=== PATIENT | female | born 1985 | race Caucasian/White ===

== ENCOUNTER 2022-02-13 23:53 | Inpatient (IN) | payer BC ==
[2022-02-14 03:32] VITALS: BMI 36.3
[2022-02-14] MEDS ORDERED: Dextrose 5 % And 0.9 % NaCl 1,000 ML IV SCH ×2 (04:00→05:00)
[2022-02-14] MEDS ORDERED: Ondansetron PF 4 MG/2 ML Vial IVP PRN (04:00)
[2022-02-14] MEDS ORDERED: Ondansetron ODT 4 MG TAB SL PRN (04:00)
[2022-02-14] MEDS ORDERED: diphenhydrAMINE 50 MG/ML VIAL IVP SCH (04:30)
[2022-02-14] MEDS ORDERED: Acetaminophen 650 MG Suppository PR PRN (05:08)
[2022-02-14] MEDS: Clindamycin/D5W 600 MG in Premix Bag 1 BAG IVPB SCH ×4 (05:12→22:57)
[2022-02-14 05:57] LABS: Hemoglobin 14.5 g/dL (12.0-16.0); Mean Corpuscular Hemoglobin 32.3 pg (27.0-31.0); Mean Platelet Volume 11.2 fL (7.4-10.4); Platelet Count 203 10x3/uL (130-400); RBC Distribution Width 12.3 % (11.5-14.5); White Blood Cell (WBC) Count 25.3 10x3/uL (4.8-10.8)
[2022-02-14 06:21] LABS: Anion Gap 11 mmol/L (10-20); BUN (Urea Nitrogen) 6 mg/dL (7.0-18.7); Calc. Creatinine Clearance 173 mL/min (70-130); Calcium 8.8 mg/dL (7.8-10.44); Carbon Dioxide 18 mmol/L (22-29); Chloride 108 mmol/L (98-107); Estimated GFR 116; Glucose 155 mg/dL (70-105); Potassium 3.4 mmol/L (3.5-5.1); Sodium 134 mmol/L (136-145)
[2022-02-14 06:43] LABS: Band 16 % (5-11); Dohle Bodies SLIGHT; Lymphocytes 1 % (21-51); MDiff Complete? YES; Monocytes 1 % (0-10); Neutrophil 82 % (42-75); Platelet Morphology Comment Appears Adequate; RBC Morphology Normal; Vacuoles SLIGHT
[2022-02-14] MEDS ORDERED: metroNIDAZOLE 500 MG in Premix Bag 1 BAG IVPB SCH (08:00)
[2022-02-14] MEDS: Pantoprazole 40 MG VIAL IVP SCH (09:01)
[2022-02-14] MEDS ORDERED: Fentanyl 250 MCG/5 ML VIAL ONE (15:02)
[2022-02-14] MEDS ORDERED: Dexmedetomidine 200 MCG/2 ML VIAL ONE (15:03)
[2022-02-14] MEDS ORDERED: EPINEPHrine 1 MG/ML AMP ONE (16:04)
[2022-02-14] MEDS ORDERED: Lidocaine 1% (PF) 30 ML VIAL ONE (16:04)
[2022-02-14] MEDS ORDERED: Midazolam HCl 2 mg/2 ml Vial ONE (16:16)
[2022-02-14] MEDS ORDERED: PROPOFOL 200 MG/20 ML VIAL ONE (16:23)
[2022-02-14] MEDS ORDERED: Dexamethasone 20 MG/5 ML VIAL ONE (16:23)
[2022-02-14] MEDS ORDERED: Ondansetron PF 4 MG/2 ML Vial ONE (16:23)
[2022-02-14] MEDS: traMADol HCl 50 MG TAB PO PRN ×2 (18:23→22:54)
[2022-02-14] MEDS ORDERED: Morphine 4 MG/ML VIAL SLOW IVP SCH (21:00)
[2022-02-15] MEDS: traMADol HCl 50 MG TAB PO PRN ×4 (03:07→20:41)
[2022-02-15] MEDS ORDERED: diphenhydrAMINE 25 MG CAP PO SCH (03:15)
[2022-02-15] MEDS: Clindamycin/D5W 600 MG in Premix Bag 1 BAG IVPB SCH ×3 (05:20→17:10)
[2022-02-15 06:43] LABS: Hemoglobin 13.7 g/dL (12.0-16.0); Mean Corpuscular HGB CONC 33.4 g/dL (32.0-36.0); Mean Corpuscular Volume 95.7 fl (78.0-98.0); Mean Platelet Volume 11.7 fL (7.4-10.4); Platelet Count 225 10x3/uL (130-400); RBC Distribution Width 12.3 % (11.5-14.5); Red Blood Cell (RBC) Count 4.28 mill/uL (4.20-5.40); White Blood Cell (WBC) Count 29.9 10x3/uL (4.8-10.8)
[2022-02-15 07:05] LABS: Anion Gap 14 mmol/L (10-20); BUN (Urea Nitrogen) 11 mg/dL (7.0-18.7); Calc. Creatinine Clearance 210 mL/min (70-130); Carbon Dioxide 19 mmol/L (22-29); Chloride 103 mmol/L (98-107); Estimated GFR 121; Glucose 109 mg/dL (70-105); Potassium 3.1 mmol/L (3.5-5.1); Sodium 133 mmol/L (136-145)
[2022-02-15 08:47] LABS: Band 13 % (5-11); Lymphocytes 9 % (21-51); MDiff Complete? YES; Monocytes 9 % (0-10); Neutrophil 69 % (42-75); Platelet Morphology Comment Appears Adequate; RBC Morphology Normal
[2022-02-15] MEDS: Pantoprazole 40 MG VIAL IVP SCH (09:08)
[2022-02-15] MEDS: Potassium Chloride 20 MEQ TAB PO SCH ×2 (14:15→20:42)
[2022-02-15] MEDS: Morphine 4 MG/ML VIAL SLOW IVP PRN (17:11)
[2022-02-15] MEDS ORDERED: Amlodipine 5 MG TAB PO SCH (17:15)
[2022-02-15] MEDS: Acetaminophen 325 MG TAB PO PRN (20:42)
[2022-02-16] MEDS: Clindamycin/D5W 600 MG in Premix Bag 1 BAG IVPB SCH ×5 (00:41→23:02)
[2022-02-16] MEDS: traMADol HCl 50 MG TAB PO PRN ×2 (02:15→06:17)
[2022-02-16] MEDS: Acetaminophen 325 MG TAB PO PRN (05:36)
[2022-02-16 06:03] LABS: Anion Gap 16 mmol/L (10-20); BUN (Urea Nitrogen) 9 mg/dL (7.0-18.7); Calc. Creatinine Clearance 184 mL/min (70-130); Calcium 8.7 mg/dL (7.8-10.44); Carbon Dioxide 16 mmol/L (22-29); Chloride 102 mmol/L (98-107); Estimated GFR 117; Glucose 72 mg/dL (70-105); Potassium 3.7 mmol/L (3.5-5.1); Sodium 130 mmol/L (136-145)
[2022-02-16 06:16] LABS: #Eosinphils 0.2 thou/uL (0.0-0.7); #Lymphocytes 1.4 thou/uL (1.20-3.40); #Monocytes 1.4 thou/uL (0.11-0.59); #Neutrophils 17.7 thou/uL (1.40-6.50); %Eosinophils 1.2 % (0.0-10.0); %Lymphocytes 6.9 % (21.0-51.0); %Monocytes 6.6 % (0.0-10.0); %Neutrophils 85.3 % (42.0-75.0); Hemoglobin 14.6 g/dL (12.0-16.0); Mean Corpuscular HGB CONC 32.7 g/dL (32.0-36.0); Mean Corpuscular Hemoglobin 32.2 pg (27.0-31.0); Mean Corpuscular Volume 98.6 fl (78.0-98.0); Mean Platelet Volume 10.7 fL (7.4-10.4); Platelet Count 185 10x3/uL (130-400); RBC Distribution Width 12.7 % (11.5-14.5); Red Blood Cell (RBC) Count 4.51 mill/uL (4.20-5.40); White Blood Cell (WBC) Count 20.8 10x3/uL (4.8-10.8)
[2022-02-16] MEDS: Gabapentin 300 MG CAP PO SCH ×3 (08:53→19:49)
[2022-02-16] MEDS: Loratadine 10 MG TAB PO SCH (08:53)
[2022-02-16] MEDS: Pantoprazole 40 MG VIAL IVP SCH (08:53)
[2022-02-16] MEDS: Famotidine 20 MG TAB PO SCH ×2 (08:53→19:50)
[2022-02-16] MEDS: Amlodipine 10 MG TAB PO SCH (08:53)
[2022-02-16] MEDS ORDERED: Cetirizine HCl 10 MG TAB PO SCH (09:00)
[2022-02-16] MEDS ORDERED: Topiramate 25 MG TAB PO SCH (09:00)
[2022-02-16] MEDS: Ketorolac Tromethamine 30 MG/ML VIAL IVP PRN ×2 (10:52→18:32)
[2022-02-16] MEDS: Topiramate 25 MG TAB PO SCH (19:50)
[2022-02-17] MEDS: Ketorolac Tromethamine 30 MG/ML VIAL IVP PRN ×4 (00:28→20:14)
[2022-02-17] MEDS: Acetaminophen 325 MG TAB PO PRN ×4 (02:46→22:58)
[2022-02-17] MEDS: Morphine 4 MG/ML VIAL SLOW IVP PRN (02:46)
[2022-02-17] MEDS: Clindamycin/D5W 600 MG in Premix Bag 1 BAG IVPB SCH ×4 (06:08→22:59)
[2022-02-17 06:32] LABS: Anion Gap 14 mmol/L (10-20); BUN (Urea Nitrogen) 8 mg/dL (7.0-18.7); Calc. Creatinine Clearance 149 mL/min (70-130); Calcium 8.1 mg/dL (7.8-10.44); Carbon Dioxide 23 mmol/L (22-29); Chloride 97 mmol/L (98-107); Estimated GFR 99; Glucose 87 mg/dL (70-105); Hemoglobin 13.9 g/dL (12.0-16.0); Mean Corpuscular HGB CONC 33.9 g/dL (32.0-36.0); Mean Corpuscular Volume 94.6 fl (78.0-98.0); Mean Platelet Volume 11.2 fL (7.4-10.4); Platelet Count 251 10x3/uL (130-400); Potassium 2.7 mmol/L (3.5-5.1); RBC Distribution Width 12.5 % (11.5-14.5); Red Blood Cell (RBC) Count 4.34 mill/uL (4.20-5.40); Sodium 131 mmol/L (136-145); White Blood Cell (WBC) Count 29.9 10x3/uL (4.8-10.8)
[2022-02-17 07:34] LABS: Band 31 % (5-11); Large Platelets SLIGHT; Lymphocytes 6 % (21-51); MDiff Complete? YES; Monocytes 1 % (0-10); Neutrophil 61 % (42-75); Platelet Morphology Comment Appears Adequate; RBC Morphology Normal; Reactive Lymphocytes 1 % (0-10)
[2022-02-17] MEDS ORDERED: Potassium Chloride 40 MEQ in Premix Bag 1 BAG IVPB SCH (08:00)
[2022-02-17] MEDS: Pantoprazole 40 MG VIAL IVP SCH (09:24)
[2022-02-17] MEDS: Loratadine 10 MG TAB PO SCH ×2 (09:24→20:14)
[2022-02-17] MEDS: Potassium Chloride 20 MEQ TAB PO SCH ×2 (09:24→13:05)
[2022-02-17] MEDS: Famotidine 20 MG TAB PO SCH ×2 (09:24→20:14)
[2022-02-17] MEDS: Gabapentin 300 MG CAP PO SCH ×3 (09:25→20:14)
[2022-02-17] MEDS: Amlodipine 10 MG TAB PO SCH (09:26)
[2022-02-17] MEDS ORDERED: diphenhydrAMINE 25 MG CAP PO PRN (09:48)
[2022-02-17] MEDS ORDERED: Hydrocortisone 1% Cream 30 GM TUBE TOP SCH (13:15)
[2022-02-17] MEDS: Topiramate 25 MG TAB PO SCH (20:14)
[2022-02-18] MEDS: Ketorolac Tromethamine 30 MG/ML VIAL IVP PRN ×2 (02:58→08:31)
[2022-02-18] MEDS: Clindamycin/D5W 600 MG in Premix Bag 1 BAG IVPB SCH ×2 (05:09→11:20)
[2022-02-18] MEDS: Morphine 4 MG/ML VIAL SLOW IVP PRN ×2 (05:12→13:33)
[2022-02-18] MEDS: Acetaminophen 325 MG TAB PO PRN ×2 (05:12→13:33)
[2022-02-18] MEDS: Gabapentin 300 MG CAP PO SCH ×2 (08:30→14:46)
[2022-02-18] MEDS: Pantoprazole 40 MG VIAL IVP SCH (08:30)
[2022-02-18] MEDS: Famotidine 20 MG TAB PO SCH (08:31)
[2022-02-18] MEDS: Loratadine 10 MG TAB PO SCH (08:31)
[2022-02-18] MEDS ORDERED: Hydrocortisone 1% Cream 30 GM TUBE TOP SCH (09:00)
[2022-02-18 11:12] LABS: Hemoglobin 12.2 g/dL (12.0-16.0); Mean Corpuscular HGB CONC 34.1 g/dL (32.0-36.0); Mean Corpuscular Hemoglobin 32.5 pg (27.0-31.0); Mean Corpuscular Volume 95.3 fl (78.0-98.0); Mean Platelet Volume 10.4 fL (7.4-10.4); Platelet Count 213 10x3/uL (130-400); RBC Distribution Width 12.5 % (11.5-14.5); Red Blood Cell (RBC) Count 3.76 mill/uL (4.20-5.40); White Blood Cell (WBC) Count 23.1 10x3/uL (4.8-10.8)
[2022-02-18] MEDS ORDERED: Iopamidol-370 76% 500 ML 1 ML ONE (11:17)
[2022-02-18 11:42] LABS: Band 7 % (5-11); Eosinophils 1 % (0-10); Lymphocytes 2 % (21-51); MDiff Complete? YES; Metamyelocyte 1 % (0-0); Monocytes 2 % (0-10); Neutrophil 87 % (42-75); Platelet Morphology Comment Appears Adequate; RBC Morphology Normal
[2022-02-18 12:33] VITALS: BP 89/60; TEMP 97.2
== END 2022-02-18 15:40 | disposition home or self-care (01) | DRG 854 ==
LOC: OBSVTOIN 23:53 → INTOOBSV 23:53 → SURG A 23:53
PROVIDERS: ADMIT Internal Medicine; ATTEND Internal Medicine
PROC: 3E03329 Introduction of Other Anti-infective into Peripheral Vein, Percutaneous Approach (ICD-10-PCS; principal; 2022-02-13)
PROC: 0W960ZZ Drainage of Neck, Open Approach (ICD-10-PCS; 2022-02-13)
DX: A41.9 Sepsis, unspecified organism (principal); J39.0 Retropharyngeal and parapharyngeal abscess; G43.909 Migraine, unspecified, not intractable, without status migrainosus; Z20.822 Contact with and (suspected) exposure to COVID-19; D75.1 Secondary polycythemia; L27.0 Generalized skin eruption due to drugs and medicaments taken internally; T36.1X5A Adverse effect of cephalosporins and other beta-lactam antibiotics, initial encounter; Z79.899 Other long term (current) drug therapy
CPT/HCPCS: 36415; 70491; 80048; 85025; 87633; C1776; C9113; J0171; J1100; J1200; J1885; J2001; J2250; J2270; J2405; J2704; J3010; J3490; Q9967